=== PATIENT | male | born 1955 | race Hispanic/Latino ===

== ENCOUNTER 2017-03-02 18:03 | Emergency (ER) | payer OTHER ==
[2017-03-02] MEDS ORDERED: ACETAMINOPHEN 325 MG TABLET PO ONE (18:37)
[2017-03-02 18:57] LABS: Hematocrit 42.6 % (42.0-52.0); Hemoglobin 14.7 gm/dL (13.5-18.0); Mean Cell Volume 90.8 fl (78-100); Mean Corpuscular Hemoglobin 31.3 pg (27-31); Mean Corpuscular Hgb Conc 34.5 g/dl (32-36); Neutrophil # 5.6 K/mm3 (1.3-6.0); Neutrophil % 65.8 % (42-75.0); Platelet Count 239 K/mm3 (150-450); Red Blood Count 4.69 M/mm3 (4.7-6.0); Red Cell Distribution Width 12.5 % (11.5-14.0); White Blood Count 8.5 K/mm3 (4.0-10.5)
--- NOTE | 2017-03-02 19:00 | ERNOTE ---
Neuro HPI ER Record Presenting Symptoms: other - seizure Time Seen by Provider: 03/02/17 18:20 Source: patient Exam Limitations: no limitations Immunizations: IMMUNIZATION HX Immunizations Up to Date Yes Allergies/Adverse Reactions: Allergies Allergy/AdvReac Type Severity Reaction Status Date / Time No Known Allergies Allergy Unverified 03/02/17 18:15 Home Medications: HOME MEDICATIONS Albuterol Sulfate 2.5 mg IH QID PRN 03/02/17 [Last Taken Unknown] Amlodipine Besylate 10 mg PO DAILY 03/02/17 [Last Taken Unknown] Beclomethasone Dipropionate [Qvar] 8.7 gm IH BID 03/02/17 [Last Taken Unknown] Doxazosin Mesylate [Cardura] 2 mg PO HS 03/02/17 [Last Taken Unknown] Gabapentin [Neurontin] 600 mg PO BID 03/02/17 [Last Taken Unknown] Ibuprofen 800 mg PO TID PRN 03/02/17 [Last Taken Unknown] Nortriptyline HCl 50 mg PO HS 03/02/17 [Last Taken Unknown] Ranitidine HCl [Zantac] 150 mg PO BID 03/02/17 [Last Taken Unknown] Simvastatin [Zocor] 40 mg PO HS 03/02/17 [Last Taken Unknown] - History of Present Illness Narrative: Patient is an inmate at [facility]. They recently had multiple inmates using [employer] and pulled him out today for drug testing. Patient states that he was promised to return to his unit if his urine test came back clean, but then was told he had to go to a different unit. At that point he got mad and started acting up. He was put in a suicide jacket and restraints. He then (17:00)started to generalized seizures? (became unresponsive and had generalized shaking), symptoms lasted for about seven minutes and after that he was confused for a while till the ambulance arrival. He states that this episode aggravated his intermittent sciatic pain. He currently has numbness and pain in his right lower back radiating down in right leg to his foot - Character of Deficits Additional Deficits: Absent: vision problems, impaired speech, difficulty swallowing Baseline Cognition: Present: alert, oriented x 4 Baseline Gait: Present: walks w/o assistance Review of Systems - Review of Systems Constitutional: Absent: recent illness, fever, chills EYE: Absent: double vision, vision changes Respiratory: Absent: shortness of breath, cough Cardiology: Absent: chest pain Gastrointestinal/Abdominal: Present: nausea, vomiting - in ambulance. Absent: diarrhea, abdominal pain Genitourinary: Present: no symptoms reported Musculoskeletal: Present: See HPI, back pain Skin: Absent: rash Neurological: Present: headache, numbness - Patient's Past Medical History Patient History - Medical: Anxiety, Chronic Pain, GERD, Obesity, Other - hep C Patient History - Cardiac/Respiratory: Asthma, Hypertension, Hyperlipidemia Patient History - Surgical Procedures: Appendectomy, Cholecystectomy Patient History - Other: None - Social History Living Situations: other Psych History: Hx of Anxiety Smoking Status: Former smoker Alcohol Use: none Drug Use: none - Immunizations Immunizations Up to Date: Yes Physical Exam - Physical Exam General Appearance: Present: wd/wn, alert, no apparent distress Eye Exam: Normal inspection: bilateral, PERRL: bilateral, EOMI: bilateral Neck: Present: normal inspection, nontender Respiratory: Present: no respiratory distress, normal breath sounds, no accessory muscle use, lungs clear Cardiovascular/Chest: Present: regular rate, rhythm, no murmur Gastrointestinal/Abdominal: Present: normal bowel sounds, nontender, nondistended, soft Back Exam: Present: normal inspection, vertebral tenderness - lumbar spine, other - pain on minimal right straight leg raise Extremity Exam: Present: normal inspection Neurological Exam: Present: alert, oriented, normal mood/affect, no motor/ sensory deficits - except right lower leg strength 4/5 (pain? weakness?), DTR: N=norm/NB=norm/brisk/A=abs/DD=dull/dimin/HC=hyperactive: Knee (R): Normal, Knee (L): Dull/Diminished, Ankle (R): Normal, Ankle (L): Dull/Diminished Skin Exam: Present: normal color, warm/dry Masood Coma Scale - Assess Eye Opening: Spontaneous Motor: Obeys Commands Verbal: Oriented - Total Coma Scale Total: 15 ED Progress - Results and Orders Patient's Lab Results:: I have reviewed the patient's lab results. - Vital Signs Patient's Vital Signs:: I have reviewed the patient's vital signs. Vital Signs: Vital Signs 03/02/17 18:06 Temperature 37.4 C Pulse Rate 82 Respiratory 18 Rate Blood Pressure 153/74 - X-Ray X-Ray #1 X-Ray: lumbosacral - DDD, no fracture Interpretation: Interp. by me - CT/Ultrasound CT/Ultrasound Narrative: CT head: no acute - Progress/Reassessment Chief Complaint: Seizure Activity Progress Note-Subjective: 03/02/17 18:50 patient had brief generalized seizure lasting about 1-2 minutes, brief confusion afterwards 03/02/17 20:00 patient alert and talking explained test results patient had three seizures while here to a total of four seizure 03/02/17 20:11 call to [facility] 03/02/17 20:[address] Garcia (ERP) accepted patient for transfer Departure Clinical Impression: New onset seizure Sciatic nerve pain Qualifiers: Laterality: right Qualified Code(s): M54.31 - Sciatica, right side - Departure Disposition: [facility] Condition: Good
[2017-03-02] MEDS ORDERED: LORazepam 2 MG/ML DISP.SYRIN ONE ×2 (19:02→20:56)
[2017-03-02 19:09] LABS: Albumin * 3.6 gm/dl (3.4-5.0); Anion Gap 10.8 mmol/L (6.8-13.8); BUN/Creatinine Ratio 12.2 (9.0-21.6); Bilirubin, Total 0.4 mg/dL (0.0-1.1); Ca. Corrected For Albumin 8.7 mg/dL (8.4-10.2); Calcium * 8.7 mg/dL (7.9-10.9); Carbon Dioxide 28.8 mmol/L (24-32.6); Potassium 3.6 mmol/L (3.4-4.6); Total Protein 6.8 gm/dL (6.2-8.2)
[2017-03-02 20:14] LABS: Cocaine Ur Negative (NEGATIVE); Urine Barbiturate Negative (NEGATIVE); Urine Benzodiazepines Negative (NEGATIVE); Urine Opiates Negative (NEGATIVE); Urine PCP Negative (NEGATIVE); Urine THC Negative (NEGATIVE)
[2017-03-02] MEDS ORDERED: ONDANSETRON HCL/PF 2 MG/ML VIAL ONE (20:27)
[2017-03-02] MEDS ORDERED: ONDANSETRON HCL/PF 2 MG/ML VIAL IV ONE (20:28)
[2017-03-02] MEDS ORDERED: LORazepam 2 MG/ML DISP.SYRIN IV ONE (20:59)
[2017-03-02 21:34] VITALS: BP 150/85
[2017-03-02] MEDS ORDERED: ACETAMINOPHEN 650 MG SUPP.RECT RC ONE (21:52)
[2017-03-02] MEDS ORDERED: ACETAMINOPHEN 650 MG SUPP.RECT ONE (21:55)
== END 2017-03-02 22:52 | disposition short-term general hospital (02) ==
LOC: ER 18:03
DX: R56.9 Unspecified convulsions (principal); M54.31 Sciatica, right side; E78.5 Hyperlipidemia, unspecified; I10 Essential (primary) hypertension; K21.9 Gastro-esophageal reflux disease without esophagitis; F41.9 Anxiety disorder, unspecified
CPT/HCPCS: 36415; 70450; 72110; 80053; 80307; 85025; 96365; 96375; 99285; G0481